=== PATIENT | female | born 1955 | race Caucasian/White ===

== ENCOUNTER 2023-09-11 14:25 | Observation (INO) | payer OTHER, SELFPAY ==
[2023-09-11] VITALS (61 sets, daily range): BP systolic 80–135; BP diastolic 47–74; PULSE 46–84; RESP 14–28; TEMP 36.1–36.4; O2SAT 93–100; BMI 25.0
--- NOTE | 2023-09-11 14:41 | ED_ITS ---
HPI - Abdominal Pain <Jaylene Topete MD - Last Filed: 09/13/23 00:44> General Chief Complaint: Abdominal Pain Stated Complaint: ABD Pain, Vomitting Time Seen by Provider: 09/11/23 14:28 Source: patient Mode of arrival: Wheelchair History of Present Illness HPI narrative: 67-year-old female presents for sudden onset right lower quadrant abdominal pain and vomiting. Patient states history of kidney stones several years ago, and this feels somewhat similar. Other history is limited as patient was actively vomiting into emesis bag and writhing around on the ED stretcher. Related Data Home Medications Medication Instructions Recorded Confirmed estradiol 0.05 mg/24 hr weekly 1 patch transdermal WEEKLY 09/11/23 09/11/23 transdermal patch gabapentin 300 mg capsule 300 mg DAILY 09/11/23 09/11/23 progesterone micronized 200 mg 200 mg PO ONCE PM 09/11/23 09/11/23 capsule Previous Rx's Medication Instructions Recorded hydrocodone 5 mg-acetaminophen 325 1 tab PO Q6H PRN pain #6 tabs 09/12/23 mg tablet ondansetron 4 mg disintegrating 4 mg PO Q4H PRN nausea and 09/12/23 tablet vomiting #10 tabs Allergies Allergy/AdvReac Type Severity Reaction Status Date / Time No Known Drug Allergies Allergy Verified 09/11/23 14:35 Review of Systems <Jaylene Topete MD - Last Filed: 09/13/23 00:44> Review of Systems Narrative: See HPI Patient History <Jaylene Topete MD - Last Filed: 09/13/23 00:44> Social History household members: family Smoking Status: Unknown if ever smoked Smoking Status: Unknown if ever smoked alcohol intake frequency: holidays/special occasions only Substance Use Type: does not use Exam <Jaylene Topete MD - Last Filed: 09/13/23 00:44> Initial Vital Signs Initial Vital Signs: Vital Signs Temperature 97.5 F L 09/11/23 14:26 Pulse Rate 61 09/11/23 14:26 Respiratory Rate 20 09/11/23 14:26 Blood Pressure 135/74 09/11/23 14:26 Pulse Oximetry 99 09/11/23 14:26 Oxygen Delivery Method Room Air 09/11/23 14:26 Const: Awake, alert, tearful, writhing on ED bed Cardiac: regular rate, regular rhythm RESP: unlabored, clear bilaterally, no wheezing GI: Soft, no reproducible tenderness to deep palpation, no rebound or guarding Skin: Warm, Dry, intact, no rashes Neuro: AO x3, CN II-XII grossly intact, moves all extremities <Jaylene Wu DO - Last Filed: 09/12/23 00:54> Initial Vital Signs Initial Vital Signs: Vital Signs Temperature 97.5 F L 09/11/23 14:26 Pulse Rate 61 09/11/23 14:26 Respiratory Rate 20 09/11/23 14:26 Blood Pressure 135/74 09/11/23 14:26 Pulse Oximetry 99 09/11/23 14:26 Oxygen Delivery Method Room Air 09/11/23 14:26 Course <Jaylene Topete MD - Last Filed: 09/13/23 00:44> Orders Ordered: Discontinued Medications Acetaminophen (Acetaminophen 325 Mg Tablet) 650 mg PO Q6H PRN PRN Reason: Fever/Mild Pain (1-3) Last Admin: 09/12/23 07:00 Dose: 650 mg Documented By: YRIS Droperidol (Droperidol 5 Mg/2 Ml Vial) 2.5 mg IV NOW ONE Stop: 09/11/23 14:55 Last Admin: 09/11/23 15:05 Dose: 2.5 mg Documented By: CONSTANCE Droperidol (Droperidol 5 Mg/2 Ml Vial) 2.5 mg IV NOW ONE Stop: 09/11/23 16:33 Last Admin: 09/11/23 16:33 Dose: 2.5 mg Documented By: CONSTANCE Gabapentin (Gabapentin 300 Mg Capsule) 300 mg PO DAILY MATT Last Admin: 09/12/23 09:11 Dose: Not Given Documented By: VELASQUEZ Hydromorphone HCl (Hydromorphone 0.5 Mg Inj) 0.5 mg IV Q2H PRN PRN Reason: Pain, Severe (7-10) Last Admin: 09/12/23 00:27 Dose: 0.5 mg Documented By: YRIS Sodium Chloride (Normal Saline 0.9%) 1,000 mls @ 1,000 mls/hr IV BOLUS ONE Stop: 09/11/23 15:38 Last Infusion: 09/11/23 16:11 Dose: Infused Documented By: Admin: 09/11/23 14:45 Dose: 1,000 mls/hr Documented By: RB Sodium Chloride (Normal Saline 0.9%) 1,000 mls @ 1,000 mls/hr IV BOLUS ONE Stop: 09/11/23 17:30 Last Infusion: 09/11/23 17:38 Dose: Infused Documented By: Admin: 09/11/23 16:33 Dose: 1,000 mls/hr Documented By: RB Sodium Chloride (Normal Saline 0.9%) 1,000 mls @ 1,000 mls/hr IV BOLUS ONE Stop: 09/11/23 17:30 Last Admin: 09/11/23 16:34 Dose: Not Given Documented By: RB Acetaminophen (Ofirmev) 1,000 mg in 100 mls @ 400 mls/hr IV NOW ONE Stop: 09/11/23 19:34 Last Infusion: 09/11/23 19:42 Dose: Infused Documented By: Admin: 09/11/23 19:33 Dose: 400 mls/hr Documented By: AB Ceftriaxone Sodium 1,000 mg/ (Sodium Chloride) 100 mls @ 200 mls/hr IV NOW ONE Stop: 09/11/23 19:22 Last Infusion: 09/11/23 20:13 Dose: Infused Documented By: Admin: 09/11/23 19:43 Dose: 200 mls/hr Documented By: AB Sodium Chloride (Normal Saline 0.9%) 1,000 mls @ 200 mls/hr IV CONT MATT Last Infusion: 09/11/23 23:15 Dose: 0 mls/hr Documented By: Admin: 09/11/23 21:28 Dose: 200 mls/hr Documented By: AB Sodium Chloride (Normal Saline 0.9%) 1,000 mls @ 100 mls/hr IV CONT MATT Last Admin: 09/12/23 06:10 Dose: 100 mls/hr Documented By: Infusion: 09/12/23 06:10 Dose: Infused Documented By: Admin: 09/11/23 23:14 Dose: 100 mls/hr Documented By: YRIS Ketorolac Tromethamine (Ketorolac 30 Mg/Ml Vial) 15 mg IV NOW ONE Stop: 09/11/23 15:14 Last Admin: 09/11/23 15:19 Dose: 15 mg Documented By: KENDRA Ketorolac Tromethamine (Ketorolac 30 Mg/Ml Vial) 30 mg IV NOW ONE Stop: 09/12/23 02:28 Last Admin: 09/12/23 02:46 Dose: 30 mg Documented By: YRIS Lorazepam (Lorazepam 2 Mg/Ml Inj) 2 mg IV NOW ONE Stop: 09/11/23 14:40 Last Admin: 09/11/23 14:52 Dose: Not Given Documented By: KENDRA Lorazepam (Lorazepam 2 Mg/Ml Inj) 1 mg IV NOW ONE Stop: 09/11/23 20:16 Last Admin: 09/11/23 20:33 Dose: 1 mg Documented By: Morphine Sulfate (Morphine 4 Mg/Ml Inj) 4 mg IV NOW ONE Stop: 09/11/23 14:40 Last Admin: 09/11/23 14:45 Dose: 4 mg Documented By: RB Morphine Sulfate (Morphine 2 Mg/Ml Inj) 2 mg IV NOW ONE Stop: 09/11/23 22:34 Last Admin: 09/11/23 22:53 Dose: 2 mg Documented By: YRIS Naloxone HCl (Naloxone 0.4 Mg/Ml Vial) 0.2 mg IV Q2MIN PRN PRN Reason: Opiate Reversal Ondansetron HCl (Ondansetron 4 Mg/2 Ml Inj) 4 mg IV NOW ONE Stop: 09/11/23 19:26 Last Admin: 09/11/23 20:04 Dose: 4 mg Documented By: Ondansetron HCl (Ondansetron 4 Mg/2 Ml Inj) 4 mg IV NOW ONE Stop: 09/11/23 22:34 Last Admin: 09/11/23 22:53 Dose: 4 mg Documented By: YRIS Ondansetron HCl (Ondansetron 4 Mg/2 Ml Inj) 4 mg IV Q8HR PRN PRN Reason: Nausea And Vomiting Vital Signs Vital signs: Vital Signs - 8 hr 09/11/23 16:55 09/11/23 16:55 09/11/23 17:00 Pulse Rate 55 L Respiratory Rate 14 Blood Pressure 105/62 102/59 L Pulse Oximetry 96 Oxygen Delivery Method 09/11/23 17:00 09/11/23 17:05 09/11/23 17:05 Pulse Rate 74 56 L Respiratory Rate 20 14 Blood Pressure 94/56 L Pulse Oximetry 97 95 Oxygen Delivery Method 09/11/23 17:10 09/11/23 17:10 09/11/23 17:22 Pulse Rate 55 L 84 Respiratory Rate 15 Blood Pressure 95/54 L Pulse Oximetry 94 99 Oxygen Delivery Method 09/11/23 17:30 09/11/23 17:36 09/11/23 17:36 Pulse Rate 58 L 55 L Respiratory Rate 16 15 Blood Pressure 100/55 L Pulse Oximetry 97 98 Oxygen Delivery Method 09/11/23 17:40 09/11/23 17:40 09/11/23 17:45 Pulse Rate 52 L 53 L Respiratory Rate 21 21 Blood Pressure 92/53 L Pulse Oximetry 98 98 Oxygen Delivery Method 09/11/23 17:45 09/11/23 17:51 09/11/23 17:51 Pulse Rate 50 L Respiratory Rate 21 Blood Pressure 82/52 L 86/53 L Pulse Oximetry 98 Oxygen Delivery Method 09/11/23 17:55 09/11/23 17:55 09/11/23 18:00 Pulse Rate 51 L 62 Respiratory Rate 20 23 Blood Pressure 83/52 L Pulse Oximetry 97 98 Oxygen Delivery Method 09/11/23 18:00 09/11/23 18:05 09/11/23 18:05 Pulse Rate 52 L Respiratory Rate 21 Blood Pressure 98/56 L 92/53 L Pulse Oximetry 96 Oxygen Delivery Method 09/11/23 18:10 09/11/23 18:10 09/11/23 18:15 Pulse Rate 54 L 61 Respiratory Rate 16 17 Blood Pressure 89/52 L Pulse Oximetry 94 95 Oxygen Delivery Method 09/11/23 18:15 09/11/23 18:20 09/11/23 18:20 Pulse Rate 54 L Respiratory Rate 21 Blood Pressure 87/51 L 101/56 L Pulse Oximetry 98 Oxygen Delivery Method Room Air 09/11/23 18:25 09/11/23 18:25 09/11/23 18:30 Pulse Rate 56 L 67 Respiratory Rate 17 20 Blood Pressure 87/53 L Pulse Oximetry 98 96 Oxygen Delivery Method 09/11/23 18:30 09/11/23 18:35 09/11/23 18:35 Pulse Rate 57 L Respiratory Rate 18 Blood Pressure 90/52 L 88/50 L Pulse Oximetry 93 Oxygen Delivery Method 09/11/23 18:40 09/11/23 18:40 09/11/23 18:45 Pulse Rate 56 L 62 Respiratory Rate 15 18 Blood Pressure 93/50 L Pulse Oximetry 93 95 Oxygen Delivery Method 09/11/23 18:45 09/11/23 18:50 09/11/23 18:50 Pulse Rate 69 Respiratory Rate 23 Blood Pressure 100/54 L 91/53 L Pulse Oximetry 97 Oxygen Delivery Method 09/11/23 18:55 09/11/23 18:55 09/11/23 19:00 Pulse Rate 61 73 Respiratory Rate 14 22 Blood Pressure 93/53 L Pulse Oximetry 96 97 Oxygen Delivery Method Room Air 09/11/23 19:00 09/11/23 19:05 09/11/23 19:05 Pulse Rate 52 L Respiratory Rate 22 Blood Pressure 90/52 L 88/52 L Pulse Oximetry 95 Oxygen Delivery Method 09/11/23 19:10 09/11/23 19:15 09/11/23 19:30 Pulse Rate 53 L 52 L 65 Respiratory Rate 19 17 18 Blood Pressure Pulse Oximetry 94 95 96 Oxygen Delivery Method 09/11/23 19:30 09/11/23 20:00 09/11/23 20:00 Pulse Rate 51 L Respiratory Rate 24 Blood Pressure 95/55 L 91/52 L Pulse Oximetry 99 Oxygen Delivery Method 09/11/23 20:30 09/11/23 20:30 09/11/23 21:00 Pulse Rate 58 L Respiratory Rate 27 H Blood Pressure 100/53 L 97/52 L Pulse Oximetry 98 Oxygen Delivery Method 09/11/23 21:00 09/11/23 21:30 09/11/23 21:30 Pulse Rate 59 L 62 Respiratory Rate 28 H 26 H Blood Pressure 103/59 L Pulse Oximetry 98 97 Oxygen Delivery Method <Jaylene Wu, - Last Filed: 09/12/23 00:54> Orders Ordered: Discontinued Medications Acetaminophen (Acetaminophen 325 Mg Tablet) 650 mg PO Q6H PRN PRN Reason: Fever/Mild Pain (1-3) Last Admin: 09/12/23 07:00 Dose: 650 mg Documented By: CM Droperidol (Droperidol 5 Mg/2 Ml Vial) 2.5 mg IV NOW ONE Stop: 09/11/23 14:55 Last Admin: 09/11/23 15:05 Dose: 2.5 mg Documented By: RB Droperidol (Droperidol 5 Mg/2 Ml Vial) 2.5 mg IV NOW ONE Stop: 09/11/23 16:33 Last Admin: 09/11/23 16:33 Dose: 2.5 mg Documented By: RB Gabapentin (Gabapentin 300 Mg Capsule) 300 mg PO DAILY MATT Last Admin: 09/12/23 09:11 Dose: Not Given Documented By: KMD Hydromorphone HCl (Hydromorphone 0.5 Mg Inj) 0.5 mg IV Q2H PRN PRN Reason: Pain, Severe (7-10) Last Admin: 09/12/23 00:27 Dose: 0.5 mg Documented By: YRIS Sodium Chloride (Normal Saline 0.9%) 1,000 mls @ 1,000 mls/hr IV BOLUS ONE Stop: 09/11/23 15:38 Last Infusion: 09/11/23 16:11 Dose: Infused Documented By: Admin: 09/11/23 14:45 Dose: 1,000 mls/hr Documented By: RB Sodium Chloride (Normal Saline 0.9%) 1,000 mls @ 1,000 mls/hr IV BOLUS ONE Stop: 09/11/23 17:30 Last Infusion: 09/11/23 17:38 Dose: Infused Documented By: Admin: 09/11/23 16:33 Dose: 1,000 mls/hr Documented By: RB Sodium Chloride (Normal Saline 0.9%) 1,000 mls @ 1,000 mls/hr IV BOLUS ONE Stop: 09/11/23 17:30 Last Admin: 09/11/23 16:34 Dose: Not Given Documented By: RB Acetaminophen (Ofirmev) 1,000 mg in 100 mls @ 400 mls/hr IV NOW ONE Stop: 09/11/23 19:34 Last Infusion: 09/11/23 19:42 Dose: Infused Documented By: Admin: 09/11/23 19:33 Dose: 400 mls/hr Documented By: AB Ceftriaxone Sodium 1,000 mg/ (Sodium Chloride) 100 mls @ 200 mls/hr IV NOW ONE Stop: 09/11/23 19:22 Last Infusion: 09/11/23 20:13 Dose: Infused Documented By: Admin: 09/11/23 19:43 Dose: 200 mls/hr Documented By: AB Sodium Chloride (Normal Saline 0.9%) 1,000 mls @ 200 mls/hr IV CONT MATT Last Infusion: 09/11/23 23:15 Dose: 0 mls/hr Documented By: Admin: 09/11/23 21:28 Dose: 200 mls/hr Documented By: Sodium Chloride (Normal Saline 0.9%) 1,000 mls @ 100 mls/hr IV CONT MATT Last Admin: 09/12/23 06:10 Dose: 100 mls/hr Documented By: Infusion: 09/12/23 06:10 Dose: Infused Documented By: Admin: 09/11/23 23:14 Dose: 100 mls/hr Documented By: YRIS Ketorolac Tromethamine (Ketorolac 30 Mg/Ml Vial) 15 mg IV NOW ONE Stop: 09/11/23 15:14 Last Admin: 09/11/23 15:19 Dose: 15 mg Documented By: KENDRA Ketorolac Tromethamine (Ketorolac 30 Mg/Ml Vial) 30 mg IV NOW ONE Stop: 09/12/23 02:28 Last Admin: 09/12/23 02:46 Dose: 30 mg Documented By: YRIS Lorazepam (Lorazepam 2 Mg/Ml Inj) 2 mg IV NOW ONE Stop: 09/11/23 14:40 Last Admin: 09/11/23 14:52 Dose: Not Given Documented By: KENDRA Lorazepam (Lorazepam 2 Mg/Ml Inj) 1 mg IV NOW ONE Stop: 09/11/23 20:16 Last Admin: 09/11/23 20:33 Dose: 1 mg Documented By: Morphine Sulfate (Morphine 4 Mg/Ml Inj) 4 mg IV NOW ONE Stop: 09/11/23 14:40 Last Admin: 09/11/23 14:45 Dose: 4 mg Documented By: RB Morphine Sulfate (Morphine 2 Mg/Ml Inj) 2 mg IV NOW ONE Stop: 09/11/23 22:34 Last Admin: 09/11/23 22:53 Dose: 2 mg Documented By: YRIS Naloxone HCl (Naloxone 0.4 Mg/Ml Vial) 0.2 mg IV Q2MIN PRN PRN Reason: Opiate Reversal Ondansetron HCl (Ondansetron 4 Mg/2 Ml Inj) 4 mg IV NOW ONE Stop: 09/11/23 19:26 Last Admin: 09/11/23 20:04 Dose: 4 mg Documented By: Ondansetron HCl (Ondansetron 4 Mg/2 Ml Inj) 4 mg IV NOW ONE Stop: 09/11/23 22:34 Last Admin: 09/11/23 22:53 Dose: 4 mg Documented By: YRIS Ondansetron HCl (Ondansetron 4 Mg/2 Ml Inj) 4 mg IV Q8HR PRN PRN Reason: Nausea And Vomiting Vital Signs Vital signs: Vital Signs - 8 hr 09/11/23 16:55 09/11/23 16:55 09/11/23 17:00 Pulse Rate 55 L Respiratory Rate 14 Blood Pressure 105/62 102/59 L Pulse Oximetry 96 Oxygen Delivery Method 09/11/23 17:00 09/11/23 17:05 09/11/23 17:05 Pulse Rate 74 56 L Respiratory Rate 20 14 Blood Pressure 94/56 L Pulse Oximetry 97 95 Oxygen Delivery Method 09/11/23 17:10 09/11/23 17:10 09/11/23 17:22 Pulse Rate 55 L 84 Respiratory Rate 15 Blood Pressure 95/54 L Pulse Oximetry 94 99 Oxygen Delivery Method 09/11/23 17:30 09/11/23 17:36 09/11/23 17:36 Pulse Rate 58 L 55 L Respiratory Rate 16 15 Blood Pressure 100/55 L Pulse Oximetry 97 98 Oxygen Delivery Method 09/11/23 17:40 09/11/23 17:40 09/11/23 17:45 Pulse Rate 52 L 53 L Respiratory Rate 21 21 Blood Pressure 92/53 L Pulse Oximetry 98 98 Oxygen Delivery Method 09/11/23 17:45 09/11/23 17:51 09/11/23 17:51 Pulse Rate 50 L Respiratory Rate 21 Blood Pressure 82/52 L 86/53 L Pulse Oximetry 98 Oxygen Delivery Method 09/11/23 17:55 09/11/23 17:55 09/11/23 18:00 Pulse Rate 51 L 62 Respiratory Rate 20 23 Blood Pressure 83/52 L Pulse Oximetry 97 98 Oxygen Delivery Method 09/11/23 18:00 09/11/23 18:05 09/11/23 18:05 Pulse Rate 52 L Respiratory Rate 21 Blood Pressure 98/56 L 92/53 L Pulse Oximetry 96 Oxygen Delivery Method 09/11/23 18:10 09/11/23 18:10 09/11/23 18:15 Pulse Rate 54 L 61 Respiratory Rate 16 17 Blood Pressure 89/52 L Pulse Oximetry 94 95 Oxygen Delivery Method 09/11/23 18:15 09/11/23 18:20 09/11/23 18:20 Pulse Rate 54 L Respiratory Rate 21 Blood Pressure 87/51 L 101/56 L Pulse Oximetry 98 Oxygen Delivery Method Room Air 09/11/23 18:25 09/11/23 18:25 09/11/23 18:30 Pulse Rate 56 L 67 Respiratory Rate 17 20 Blood Pressure 87/53 L Pulse Oximetry 98 96 Oxygen Delivery Method 09/11/23 18:30 09/11/23 18:35 09/11/23 18:35 Pulse Rate 57 L Respiratory Rate 18 Blood Pressure 90/52 L 88/50 L Pulse Oximetry 93 Oxygen Delivery Method 09/11/23 18:40 09/11/23 18:40 09/11/23 18:45 Pulse Rate 56 L 62 Respiratory Rate 15 18 Blood Pressure 93/50 L Pulse Oximetry 93 95 Oxygen Delivery Method 09/11/23 18:45 09/11/23 18:50 09/11/23 18:50 Pulse Rate 69 Respiratory Rate 23 Blood Pressure 100/54 L 91/53 L Pulse Oximetry 97 Oxygen Delivery Method 09/11/23 18:55 09/11/23 18:55 09/11/23 19:00 Pulse Rate 61 73 Respiratory Rate 14 22 Blood Pressure 93/53 L Pulse Oximetry 96 97 Oxygen Delivery Method Room Air 09/11/23 19:00 09/11/23 19:05 09/11/23 19:05 Pulse Rate 52 L Respiratory Rate 22 Blood Pressure 90/52 L 88/52 L Pulse Oximetry 95 Oxygen Delivery Method 09/11/23 19:10 09/11/23 19:15 09/11/23 19:30 Pulse Rate 53 L 52 L 65 Respiratory Rate 19 17 18 Blood Pressure Pulse Oximetry 94 95 96 Oxygen Delivery Method 09/11/23 19:30 09/11/23 20:00 09/11/23 20:00 Pulse Rate 51 L Respiratory Rate 24 Blood Pressure 95/55 L 91/52 L Pulse Oximetry 99 Oxygen Delivery Method 09/11/23 20:30 09/11/23 20:30 09/11/23 21:00 Pulse Rate 58 L Respiratory Rate 27 H Blood Pressure 100/53 L 97/52 L Pulse Oximetry 98 Oxygen Delivery Method 09/11/23 21:00 09/11/23 21:30 09/11/23 21:30 Pulse Rate 59 L 62 Respiratory Rate 28 H 26 H Blood Pressure 103/59 L Pulse Oximetry 98 97 Oxygen Delivery Method MDM - Abdominal Pain <Jaylene Topete MD - Last Filed: 09/13/23 00:44> Differential Diagnosis Differential diagnosis: Likely abdominal pain, acute appendicitis and calculus of kidney Lab Data 09/12/23 06:00 09/12/23 06:00 Labs: Lab Results 09/11/23 09/11/23 09/11/23 Range/Units 14:30 14:37 18:37 WBC 8.3 (4.5-11.0) X10^3/uL RBC 4.27 (4.0-5.2) X10^6/uL Hgb 13.6 (12.0-16.0) g/dL Hct 40.1 (36-46) % MCV 93.9 (80-100) fL MCH 31.7 (26-34) PG MCHC 33.8 (30-36) % RDW 14.5 (11.6-14.8) % Plt Count 421 H (150-400) X10^3/uL Neut % (Auto) 47.5 L (50-75) % Lymph % (Auto) 41.8 H (25-40) % [place] % (Auto) 9.8 (3-14) % Eos % (Auto) 0.6 L (2-4) % Baso % (Auto) 0.3 (0-2) % Neut # (Auto) 3900 (9234-6201) /uL Lymph # (Auto) 3500 (6822-2930) /uL [place] # (Auto) 800 (0-900) /uL Eos # (Auto) 100 (0-450) /uL Baso # (Auto) 0 (0-100) /uL Sodium 135 L (137-145) mmol/L Potassium 4.0 (3.4-5.1) mmol/L Chloride 107 (98-107) mmol/L Carbon Dioxide 23 (22-32) mmol/L BUN 27 H (7-17) mg/dL Creatinine 0.85 (0.52-1.04) mg/dL Estimated GFR > 60 (>60) mL/min BUN/Creatinine Ratio 31.8 H (6-22) Glucose 132 H (80-110) mg/dL Lactate 1.8 (0.7-2.1) mmol/L Calcium 8.6 (8.4-10.2) mg/dL Total Bilirubin 0.7 (0.2-1.3) mg/dL AST 26 (14-36) IU/L ALT 16 (<35) IU/L Alkaline Phosphatase 46 (38-126) U/L Total Protein 7.1 (6.3-8.2) g/dL Albumin 4.2 (3.5-5.0) g/dL Globulin 2.9 (1.7-4.1) g/dL Albumin/Globulin Ratio 1.4 (1.0-2.8) Lipase 108 (23-300) U/L Procalcitonin (<0.5) ng/mL Urine Color [place] Urine Appearance Clear Urine pH TNP Ur Specific [place] TNP Urine Protein TNP Urine Glucose (UA) TNP Urine Ketones TNP Urine Occult Blood TNP Urine Nitrate TNP Urine Bilirubin TNP Ur Bilirubin Confirm Negative (Negative) Urine Urobilinogen TNP Ur Leukocyte Esterase TNP Urine RBC 0-1/hpf (0-5/HPF) Urine WBC 0-1/hpf (0-5/HPF) Ur Squamous Epith Cells 10-30 /hpf H (0-5/HPF) Urine Bacteria Moderate (10-30) H (None) Urine Mucus 1+ H (Negative) Urine Yeast 10-30/hpf H (None) Ur Culture Indicated? Specimen cultured Vol Urine Centrifuged 10ml (spun) U Opiates 300ng/mL cut Positive H (Negative) Ur Oxycodone Screen Negative (Negative) Urine Methadone Screen Negative (Negative) Ur Barbiturates Screen Negative (Negative) U Tricyclic Antidepress Negative (Negative) Ur Phencyclidine Scrn Negative (Negative) Ur Amphetamines Screen Negative (Negative) U Methamphetamines Scrn Negative (Negative) Ur MDMA Scrn (Ecstasy) Negative (Negative) U Benzodiazepines Scrn Negative (Negative) Urine Cocaine Screen Negative (Negative) U Marijuana (THC) Screen Negative (Negative) Urine Specific [place] (Normal) Ur Creatinine (Normal) 09/11/23 09/11/23 Range/Units 18:37 20:23 WBC (4.5-11.0) X10^3/uL RBC (4.0-5.2) X10^6/uL Hgb (12.0-16.0) g/dL Hct (36-46) % MCV (80-100) fL MCH (26-34) PG MCHC (30-36) % RDW (11.6-14.8) % Plt Count (150-400) X10^3/uL Neut % (Auto) (50-75) % Lymph % (Auto) (25-40) % [place] % (Auto) (3-14) % Eos % (Auto) (2-4) % Baso % (Auto) (0-2) % Neut # (Auto) (7011-0589) /uL Lymph # (Auto) (7617-9862) /uL [place] # (Auto) (0-900) /uL Eos # (Auto) (0-450) /uL Baso # (Auto) (0-100) /uL Sodium (137-145) mmol/L Potassium (3.4-5.1) mmol/L Chloride (98-107) mmol/L Carbon Dioxide (22-32) mmol/L BUN (7-17) mg/dL Creatinine (0.52-1.04) mg/dL Estimated GFR (>60) mL/min BUN/Creatinine Ratio (6-22) Glucose (80-110) mg/dL Lactate 1.5 (0.7-2.1) mmol/L Calcium (8.4-10.2) mg/dL Total Bilirubin (0.2-1.3) mg/dL AST (14-36) IU/L ALT (<35) IU/L Alkaline Phosphatase (38-126) U/L Total Protein (6.3-8.2) g/dL Albumin (3.5-5.0) g/dL Globulin (1.7-4.1) g/dL Albumin/Globulin Ratio (1.0-2.8) Lipase (23-300) U/L Procalcitonin 0.030 (<0.5) ng/mL Urine Color Urine Appearance Urine pH Normal Ur Specific [place] Urine Protein Urine Glucose (UA) Urine Ketones Urine Occult Blood Urine Nitrate Urine Bilirubin Ur Bilirubin Confirm (Negative) Urine Urobilinogen Ur Leukocyte Esterase Urine RBC (0-5/HPF) Urine WBC (0-5/HPF) Ur Squamous Epith Cells (0-5/HPF) Urine Bacteria (None) Urine Mucus (Negative) Urine Yeast (None) Ur Culture Indicated? Vol Urine Centrifuged U Opiates 300ng/mL cut (Negative) Ur Oxycodone Screen (Negative) Urine Methadone Screen (Negative) Ur Barbiturates Screen (Negative) U Tricyclic Antidepress (Negative) Ur Phencyclidine Scrn (Negative) Ur Amphetamines Screen (Negative) U Methamphetamines Scrn (Negative) Ur MDMA Scrn (Ecstasy) (Negative) U Benzodiazepines Scrn (Negative) Urine Cocaine Screen (Negative) U Marijuana (THC) Screen (Negative) Urine Specific [place] Normal (Normal) Ur Creatinine Normal (Normal) Imaging Data CT scan - abdomen/pelvis: Radiologist's Impression: PROCEDURE: CT KIDNEY URETER BLADDER (KUB) INDICATIONS: RLQ PAIN, HX KIDNEY STONES TECHNIQUE: Axial sections were acquired from the lung bases to the pubic symphysis. Coronal and sagittal reformats were performed. For radiation dose reduction, the following was used: automated exposure control, adjustment of mA and/or kV according to patient size. COMPARISON: None. FINDINGS: Image quality: Diagnostic. Lower Chest: No significant findings. URINARY: Right Kidney: No stones or hydronephrosis. Right Ureter: No hydroureter. Left Kidney: No stones or hydronephrosis. Left Ureter: No hydroureter. Bladder: Normal wall thickness. No stones. ABDOMEN: Liver: No contour-deforming solid mass. Gallbladder: No radiopaque gallstones or wall thickening. Biliary ducts: No biliary dilation. Pancreas: No ductal dilation. Spleen: Size is within normal limits. Adrenal Glands: No adrenal nodules. Stomach and Bowel: Normal colonic caliber, without significant wall thickening. Normal caliber appendix in the right lower quadrant. Peritoneum: No abnormal intraperitoneal fluid. No free air. Ventral Wall: No hernia. Abdominal Nodes: No enlarged retroperitoneal or mesenteric lymph nodes. Vessels: Aorta and inferior vena cava are normal in size. PELVIS: Pelvic Organs: Unremarkable. Pelvic Nodes: Unremarkable. Miscellaneous: No inguinal hernias are seen. Bones: Unremarkable. Mild degenerative changes of the visualized spine without acute vertebral body compression fracture. IMPRESSION: No obstructing stones or hydronephrosis. Normal caliber appendix in right lower quadrant. No acute process in the abdomen or pelvis identified to explain patient's symptoms. Approved by: Temi Swartz M.D.,Ph.D. on 09/11/2023 at 14:38 MDM Narrative Medical decision making narrative: Patient presenting for sudden onset severe right lower quadrant abdominal pain. Patient is crying and writhing on the ED stretcher, actively vomiting into emesis bag. Abdomen is soft, no focal reproducible tenderness to palpation, however patient states that her pain is concentrated in her right lower quadrant. Laboratory work, antiemetics, pain medications ordered. CT ordered for assessment. WBC count 8.3, hemoglobin 13.6, platelet count 421, sodium 135, potassium 4.0, creatinine 0.85, T bili 0.7, AST 26, ALT 16, alk phos 46, lipase 108. CT imaging of the abdomen and pelvis shows no acute intra-abdominal findings to explain why patient is having such severe pain. Pain controlled with morphine and Toradol, however she was still having dry heaves and poorly tolerating p.o. water. Additional antiemetics ordered and right upper quadrant ultrasound ordered. Pending read of US. Patient stating pain starting to return. Care of patient signed to Dr. Wu at 1800 09/11/2023: 67 year female signed out to myself by Dr. Topete. Patient's labs were reviewed platelets are elevated at 421 lymphocytes are 41 %, neutrophils or somewhat low at 47. Chemistry shows sodium 135 BUN 27, otherwise appropriate electrolytes glucose of 132 LFTs are negative lactate 1.8, lipase is 108. Patient had CT abdomen pelvis with no acute change, normal appendix, no acute process appreciated with some mild degenerative changes in the spine. Abdominal ultrasound was also obtained shows no cholelithiasis or acute evidence of cholecystitis. Patient was able to give a urine Postvoid residual was 44. Patient has received 2 L of fluid, morphine, droperidol x2, ketorolac. She states she is feeling improved. She did attempt a p.o. challenge about an hour prior to my evaluation and states she felt really nauseated. Did note her blood pressure has been low she states that is fairly normal she runs about 90 to 100 systolic typically. Patient notes this does feel somewhat like she had a kidney stone in the past, she also noted she would symptoms consistent with some UTI before all of her symptoms started yesterday. Denies any fevers, no chest pain or shortness of breath, stated with pain right lower quadrant does not radiate to her flank or elsewhere. She states no fevers. She states of assist looked like water and liquid. She states she did have a bowel movement yesterday but denies any diarrhea or other constipation symptoms. No vaginal bleeding or discharge. Physical exam patient is nontender, has clear lungs with normal respirations. No diaphoresis. She is overall well-appearing nontoxic appearing. Patient's pain did return gave her IV Tylenol, she would some Zofran, also given a dose of Rocephin urine shows possible infection had azo so unable to check for nitrates or leuks, patient has 10-30 squamous, 0-1 white, 0-1 RBCs moderate bacteria, 10-30 yeast. Patient has failed oral challenges twice despite antiemetics. Pain is overall improved. Possible UTI but patient does have a lot of squamous epithelial with intractable vomiting with no other clear source. Patient had blood cultures obtained, procalcitonin which is negative and lactate wishes repeated which is negative as well. Patient's blood pressure has been running about 90 systolic but she states that is normal for her. Spoke with hospitalist Dr. Noriega, accepts for observation. He does ask that we add on drug screen. <Jaylene Wu, DO - Last Filed: 09/12/23 00:54> Lab Data Labs: Lab Results 09/11/23 09/11/23 09/11/23 Range/Units 14:30 14:37 18:37 WBC 8.3 (4.5-11.0) X10^3/uL RBC 4.27 (4.0-5.2) X10^6/uL Hgb 13.6 (12.0-16.0) g/dL Hct 40.1 (36-46) % MCV 93.9 (80-100) fL MCH 31.7 (26-34) PG MCHC 33.8 (30-36) % RDW 14.5 (11.6-14.8) % Plt Count 421 H (150-400) X10^3/uL Neut % (Auto) 47.5 L (50-75) % Lymph % (Auto) 41.8 H (25-40) % [place] % (Auto) 9.8 (3-14) % Eos % (Auto) 0.6 L (2-4) % Baso % (Auto) 0.3 (0-2) % Neut # (Auto) 3900 (8576-8116) /uL Lymph # (Auto) 3500 (7235-8453) /uL [place] # (Auto) 800 (0-900) /uL Eos # (Auto) 100 (0-450) /uL Baso # (Auto) 0 (0-100) /uL Sodium 135 L (137-145) mmol/L Potassium 4.0 (3.4-5.1) mmol/L Chloride 107 (98-107) mmol/L Carbon Dioxide 23 (22-32) mmol/L BUN 27 H (7-17) mg/dL Creatinine 0.85 (0.52-1.04) mg/dL Estimated GFR > 60 (>60) mL/min BUN/Creatinine Ratio 31.8 H (6-22) Glucose 132 H (80-110) mg/dL Lactate 1.8 (0.7-2.1) mmol/L Calcium 8.6 (8.4-10.2) mg/dL Total Bilirubin 0.7 (0.2-1.3) mg/dL AST 26 (14-36) IU/L ALT 16 (<35) IU/L Alkaline Phosphatase 46 (38-126) U/L Total Protein 7.1 (6.3-8.2) g/dL Albumin 4.2 (3.5-5.0) g/dL Globulin 2.9 (1.7-4.1) g/dL Albumin/Globulin Ratio 1.4 (1.0-2.8) Lipase 108 (23-300) U/L Procalcitonin (<0.5) ng/mL Urine Color [place] Urine Appearance Clear Urine pH TNP Ur Specific [place] TNP Urine Protein TNP Urine Glucose (UA) TNP Urine Ketones TNP Urine Occult Blood TNP Urine Nitrate TNP Urine Bilirubin TNP Ur Bilirubin Confirm Negative (Negative) Urine Urobilinogen TNP Ur Leukocyte Esterase TNP Urine RBC 0-1/hpf (0-5/HPF) Urine WBC 0-1/hpf (0-5/HPF) Ur Squamous Epith Cells 10-30 /hpf H (0-5/HPF) Urine Bacteria Moderate (10-30) H (None) Urine Mucus 1+ H (Negative) Urine Yeast 10-30/hpf H (None) Ur Culture Indicated? Specimen cultured Vol Urine Centrifuged 10ml (spun) U Opiates 300ng/mL cut Positive H (Negative) Ur Oxycodone Screen Negative (Negative) Urine Methadone Screen Negative (Negative) Ur Barbiturates Screen Negative (Negative) U Tricyclic Antidepress Negative (Negative) Ur Phencyclidine Scrn Negative (Negative) Ur Amphetamines Screen Negative (Negative) U Methamphetamines Scrn Negative (Negative) Ur MDMA Scrn (Ecstasy) Negative (Negative) U Benzodiazepines Scrn Negative (Negative) Urine Cocaine Screen Negative (Negative) U Marijuana (THC) Screen Negative (Negative) Urine Specific [place] (Normal) Ur Creatinine (Normal) 09/11/23 09/11/23 Range/Units 18:37 20:23 WBC (4.5-11.0) X10^3/uL RBC (4.0-5.2) X10^6/uL Hgb (12.0-16.0) g/dL Hct (36-46) % MCV (80-100) fL MCH (26-34) PG MCHC (30-36) % RDW (11.6-14.8) % Plt Count (150-400) X10^3/uL Neut % (Auto) (50-75) % Lymph % (Auto) (25-40) % [place] % (Auto) (3-14) % Eos % (Auto) (2-4) % Baso % (Auto) (0-2) % Neut # (Auto) (0484-2257) /uL Lymph # (Auto) (5701-0962) /uL [place] # (Auto) (0-900) /uL Eos # (Auto) (0-450) /uL Baso # (Auto) (0-100) /uL Sodium (137-145) mmol/L Potassium (3.4-5.1) mmol/L Chloride (98-107) mmol/L Carbon Dioxide (22-32) mmol/L BUN (7-17) mg/dL Creatinine (0.52-1.04) mg/dL Estimated GFR (>60) mL/min BUN/Creatinine Ratio (6-22) Glucose (80-110) mg/dL Lactate 1.5 (0.7-2.1) mmol/L Calcium (8.4-10.2) mg/dL Total Bilirubin (0.2-1.3) mg/dL AST (14-36) IU/L ALT (<35) IU/L Alkaline Phosphatase (38-126) U/L Total Protein (6.3-8.2) g/dL Albumin (3.5-5.0) g/dL Globulin (1.7-4.1) g/dL Albumin/Globulin Ratio (1.0-2.8) Lipase (23-300) U/L Procalcitonin 0.030 (<0.5) ng/mL Urine Color Urine Appearance Urine pH Normal Ur Specific [place] Urine Protein Urine Glucose (UA) Urine Ketones Urine Occult Blood Urine Nitrate Urine Bilirubin Ur Bilirubin Confirm (Negative) Urine Urobilinogen Ur Leukocyte Esterase Urine RBC (0-5/HPF) Urine WBC (0-5/HPF) Ur Squamous Epith Cells (0-5/HPF) Urine Bacteria (None) Urine Mucus (Negative) Urine Yeast (None) Ur Culture Indicated? Vol Urine Centrifuged U Opiates 300ng/mL cut (Negative) Ur Oxycodone Screen (Negative) Urine Methadone Screen (Negative) Ur Barbiturates Screen (Negative) U Tricyclic Antidepress (Negative) Ur Phencyclidine Scrn (Negative) Ur Amphetamines Screen (Negative) U Methamphetamines Scrn (Negative) Ur MDMA Scrn (Ecstasy) (Negative) U Benzodiazepines Scrn (Negative) Urine Cocaine Screen (Negative) U Marijuana (THC) Screen (Negative) Urine Specific [place] Normal (Normal) Ur Creatinine Normal (Normal) ECG Data Attestation: I personally reviewed and interpreted this ECG as follows: Interpretation: Sinus rhythm rate of 62 VA 158 QRS 82 QTC [address] No acute ST elevation or depression. [facility] Narrative Medical decision making narrative: Patient presenting for sudden onset severe right lower quadrant abdominal pain. Patient is crying and writhing on the ED stretcher, actively vomiting into emesis bag. Abdomen is soft, no focal reproducible tenderness to palpation, however patient states that her pain is concentrated in her right lower quadrant. Laboratory work, antiemetics, pain medications ordered. CT ordered for assessment. WBC count 8.3, hemoglobin 13.6, platelet count 421, sodium 135, potassium 4.0, creatinine 0.85, T bili 0.7, AST 26, ALT 16, alk phos 46, lipase 108. CT imaging of the abdomen and pelvis shows no acute intra-abdominal findings to explain why patient is having such severe pain. Pain controlled with morphine and Toradol, however she was still having dry heaves and poorly tolerating p.o. water. Additional antiemetics ordered and right upper quadrant ultrasound ordered. 09/11/2023: 67 year female signed out to myself by Dr. Topete. Patient's labs were reviewed platelets are elevated at 421 lymphocytes are 41 %, neutrophils or somewhat low at 47. Chemistry shows sodium 135 BUN 27, otherwise appropriate electrolytes glucose of 132 LFTs are negative lactate 1.8, lipase is 108. Patient had CT abdomen pelvis with no acute change, normal appendix, no acute process appreciated with some mild degenerative changes in the spine. Abdominal ultrasound was also obtained shows no cholelithiasis or acute evidence of cholecystitis. Patient was able to give a urine Postvoid residual was 44. Patient has received 2 L of fluid, morphine, droperidol x2, ketorolac. She states she is feeling improved. She did attempt a p.o. challenge about an hour prior to my evaluation and states she felt really nauseated. Did note her blood pressure has been low she states that is fairly normal she runs about 90 to 100 systolic typically. Patient notes this does feel somewhat like she had a kidney stone in the past, she also noted she would symptoms consistent with some UTI before all of her symptoms started yesterday. Denies any fevers, no chest pain or shortness of breath, stated with pain right lower quadrant does not radiate to her flank or elsewhere. She states no fevers. She states of assist looked like water and liquid. She states she did have a bowel movement yesterday but denies any diarrhea or other constipation symptoms. No vaginal bleeding or discharge. Physical exam patient is nontender, has clear lungs with normal respirations. No diaphoresis. She is overall well-appearing nontoxic appearing. Patient's pain did return gave her IV Tylenol, she would some Zofran, also given a dose of Rocephin urine shows possible infection had azo so unable to check for nitrates or leuks, patient has 10-30 squamous, 0-1 white, 0-1 RBCs moderate bacteria, 10-30 yeast. Patient has failed oral challenges twice despite antiemetics. Pain is overall improved. Possible UTI but patient does have a lot of squamous epithelial with intractable vomiting with no other clear source. Patient had blood cultures obtained, procalcitonin which is negative and lactate wishes repeated which is negative as well. Patient's blood pressure has been running about 90 systolic but she states that is normal for her. Spoke with hospitalist Dr. Noriega, accepts for observation. He does ask that we add on drug screen. Discharge Plan Departure Patient Disposition: Admitted as Observation Clinical Impression: Acute UTI, Abdominal pain, Vomiting Admit Date/Time: 09/11/23 21:53 Admit Provider: Juan Manuel Noriega
[2023-09-11] MEDS: MORPHINE 4 MG/ML INJ IV (14:45)
[2023-09-11] MEDS: SODIUM CHLORIDE 0.9% 1,000 ML 1000 ML IV ×2 (14:45→16:33)
[2023-09-11 14:47] LABS: Add Manual Diff / Slide Review NO; Basophils Absolute Auto 0 /uL (0-100); Basophils Percent Auto 0.3 % (0-2); Eosinophils Absolute Auto 100 /uL (0-450); Eosinophils Percent Auto 0.6 % (2-4); Hematocrit 40.1 % (36-46); Hemoglobin 13.6 g/dL (12.0-16.0); Lymphocytes Absolute Auto 3500 /uL (1100-4500); Lymphocytes Percent Auto 41.8 % (25-40); Mean Corpuscular HGB Conc 33.8 % (30-36); Mean Corpuscular Hemoglobin 31.7 PG (26-34); Mean Corpuscular Volume 93.9 fL (80-100); Monocytes Absolute Auto 800 /uL (0-900); Monocytes Percent Auto 9.8 % (3-14); Neutrophils Absolute Auto 3900 /uL (1500-7000); Neutrophils Percent Auto 47.5 % (50-75); Platelet Count 421 X10^3/uL (150-400); Red Blood Cell Count 4.27 X10^6/uL (4.0-5.2); Red Cell Distribution Width 14.5 % (11.6-14.8); White Blood Cell Count 8.3 X10^3/uL (4.5-11.0)
[2023-09-11 14:55] LABS: Lactate (Lactic Acid) 1.8 mmol/L (0.7-2.1)
[2023-09-11 14:56] LABS: Alanine Aminotransferase 16 IU/L (<35); Albumin 4.2 g/dL (3.5-5.0); Albumin Globulin Ratio 1.4 (1.0-2.8); Alkaline Phosphatase 46 U/L (38-126); Aspartate Aminotransferase 26 IU/L (14-36); BUN Creatinine Ratio 31.8 (6-22); Bilirubin Total 0.7 mg/dL (0.2-1.3); Blood Urea Nitrogen 27 mg/dL (7-17); Calcium 8.6 mg/dL (8.4-10.2); Carbon Dioxide 23 mmol/L (22-32); Chloride 107 mmol/L (98-107); Estimated Glomerular Filt Rate > 60 mL/min (>60); Globulin 2.9 g/dL (1.7-4.1); Glucose 132 mg/dL (80-110); HEMOLYSIS < 15 (0-50); Sodium 135 mmol/L (137-145); Total Protein 7.1 g/dL (6.3-8.2)
[2023-09-11] MEDS: DROPERIDOL 5 MG/2 ML VIAL 2.5 MG IV ×2 (15:05→16:33)
[2023-09-11] MEDS: KETOROLAC 30 MG/ML VIAL 15 MG IV (15:19)
--- NOTE | 2023-09-11 15:23 | PC.NURSE ---
Patient low blood pressure noted and patient was placed in trendelenburg position. Provider notified and next blood pressure elevated.
--- NOTE | 2023-09-11 16:26 | DI.US.S_ITS ---
PROCEDURE: US ABDOMEN LIMITED INDICATIONS: R SIDED ABD PAIN, INTRACTABLE N/V TECHNIQUE: Real-time scanning was performed of the abdominal and retroperitoneal organs, with image documentation. COMPARISON: None. FINDINGS: Liver: Liver is normal in size and homogeneous in echotexture. Gallbladder: No gallstones identified. Normal gallbladder wall thickness. No pericholecystic fluid. Negative sonographic Herrera sign. Biliary ducts: Intrahepatic bile ducts are non-dilated. Extrahepatic bile duct caliber measures 2.0 mm. Normal is 6-7 mm or less in diameter, or 10 mm or less post-cholecystectomy. Pancreas: Visualized portions of the pancreas are sonographically normal. Pancreatic duct measuring 2.6 mm is within normal limits. Kidneys: Limited visualization of the right kidney demonstrates no solid masses. No nephrolithiasis or significant hydronephrosis. Right kidney measures approximately 10.8 cm. IMPRESSION: No cholelithiasis or sonographic evidence of acute cholecystitis. Approved by: Temi Swartz M.D.,Ph.D. on 09/11/2023 at 17:07
[2023-09-11 16:39] LABS: Lipase 108 U/L (23-300)
--- NOTE | 2023-09-11 16:45 | PC.NURSE ---
Patient was sat up to test her ability to intake fluids. Patient began to heave upon drinking and patient blood pressure started dropping. Provider notified and ordered additional bolus of normal saline and additional anti emetic. Patient replaced in trendelenburg
--- NOTE | 2023-09-11 18:52 | EKG_ITS ---
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
[2023-09-11 19:14] LABS: Appearance Urine UA CLEAR
[2023-09-11 19:15] LABS: Color Urine UA ORANGE
[2023-09-11 19:16] LABS: Bacteria Urine Moderate (10-30); RBC Urine 0-1/HPF (0-5/HPF); Squamous Epithelial Cell Urine 10-30 /HPF (0-5/HPF); Urine Volume 10mL (spun); WBC Urine 0-1/HPF (0-5/HPF)
[2023-09-11 19:17] LABS: Culture Indicated Urine Specimen Cultured; Mucus Urine 1+ (Negative)
[2023-09-11 19:23] LABS: Ictotest Urine Negative (Negative)
[2023-09-11] MEDS: ACETAMINOPHEN IV 1,000 MG/100 ML VIAL 400 MG IV (19:33)
[2023-09-11] MEDS: cefTRIAXone 1,000 MG in SODIUM CHLORIDE 0.9% 100 ML 200 MG IV (19:43)
[2023-09-11] MEDS: ONDANSETRON 4 MG/2 ML INJ IV ×2 (20:04→22:53)
[2023-09-11] MEDS: LORazepam 2 MG/ML INJ 1 MG IV (20:33)
[2023-09-11 20:39] LABS: Lactate (Lactic Acid) 1.5 mmol/L (0.7-2.1)
[2023-09-11] MEDS: SODIUM CHLORIDE 0.9% 1,000 ML 200 ML IV (21:28)
[2023-09-11 21:57] LABS: UR Morphine/Opiate cutoff 300 Positive (Negative); Ur Creatinine Normal (Normal); Ur Specific Gravity Normal (Normal); Urine Amphetamines Negative (Negative); Urine Barbiturates Negative (Negative); Urine Benzodiazepines Negative (Negative); Urine Cocaine Negative (Negative); Urine MDMA Negative (Negative); Urine Methadone Negative (Negative); Urine Methamphetamines Negative (Negative); Urine Oxycodone Negative (Negative); Urine Phencyclidine Negative (Negative); Urine Tetrahydrocannabinol Negative (Negative); Urine Tricyclic Antidepressant Negative (Negative); Urine pH Normal (Normal)
[2023-09-11] MEDS: MORPHINE 2 MG/ML INJ IV (22:53)
[2023-09-11] MEDS: SODIUM CHLORIDE 0.9% 1,000 ML 100 ML IV (23:14)
[2023-09-12] MEDS: HYDROMORPHONE 0.5 MG INJ IV (00:27)
[2023-09-12 00:29] VITALS: BP 117/64; PULSE 62; RESP 17; O2SAT 97
[2023-09-12] MEDS: KETOROLAC 30 MG/ML VIAL IV (02:46)
[2023-09-12 02:59] VITALS: BP 105/59; PULSE 64; RESP 16; O2SAT 97
--- NOTE | 2023-09-12 03:48 | PC.NURSE ---
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 Reports 6/10 sharp pain in RLQ, experiencing nausea w/ dry heaving at times, MD aware. Abdomen is soft and non-tender, bowel tones present, patient is passing gas. Pain & nausea medication given as ordered. IVF infusing. OOB w/ SBA to bathroom. On tele showing sinus bradycardia, patient stated that her resting heart rate is normally in the 50's. Patient is wearing her prescription sunglasses, states that she did not bring her regular glasses. Oriented to call light, plan of care ongoing.
--- NOTE | 2023-09-12 05:28 | P.HP_ITS ---
History of Present Illness History of Present Illness Date Patient Seen: 09/11/23 Time Patient Seen: 23:35 Chief complaint: ABD Pain, Vomitting Narrative: 67 years old female with a past medical history of neuropathy presented to the emergency room for right lower quadrant abdominal pain with nausea and vomiting since around noon the previous day to presentation. Denies any fever episodes. Denies any dysuria or blood in the urine but does report that she has a history of kidney stones in 2020 with similar presentations. Denies any chest pain or shortness of breath. Denies any cough wheezing headache or upper respiratory symptoms. In the ED systolic at times did drop into the 90s but bradycardic with a heart rate in the 50s to 60s. Child multiple doses of droperidol/Dilaudid and Toradol. Subsequent lab workup showed WBC count of 8.3, hemoglobin of 13.6 and a platelet count of 421. BUN of 27 and a creatinine of 0.85. AST ALT within normal levels. Urine analysis shows 0-1 WBCs and moderate bacteria. Tox screen is positive for opiates. CT abdomen shows no obstruction stones or hydronephrosis. Normal caliber appendix and no acute process was identified in the abdomen. Did receive a dose of IV Rocephin and due to persistent symptoms, patient was admitted for further evaluation [facility] Social History household members: family Smoking Status: Unknown if ever smoked Meds Home Medications and Allergies Home Medications Medication Instructions Recorded Confirmed Type estradiol 0.05 mg/24 hr weekly 1 patch transdermal WEEKLY 09/11/23 09/11/23 History transdermal patch gabapentin 300 mg capsule 300 mg DAILY 09/11/23 09/11/23 History progesterone micronized 200 mg 200 mg PO ONCE PM 09/11/23 09/11/23 History capsule Allergies Allergy/AdvReac Type Severity Reaction Status Date / Time No Known Drug Allergies Allergy Verified 09/11/23 14:35 Review of Systems Review of Systems Narrative: At 12 point review of system is negative unless otherwise stated in the history of present illness Exam Vital Signs (past 8 hours): - 09/11/23 21:30 09/11/23 21:30 09/11/23 22:10 Temperature 97.0 F L Pulse Rate 62 60 Respiratory Rate 26 H 16 Blood Pressure 103/59 L 102/55 L Pulse Oximetry 97 96 Oxygen Flow Rate 0 09/11/23 22:10 09/12/23 00:29 09/12/23 02:59 Temperature 97.0 F L Pulse Rate 60 62 64 Respiratory Rate 16 17 16 Blood Pressure 102/55 L 117/64 105/59 L Pulse Oximetry 96 97 97 Oxygen Flow Rate 0 0 0 Oxygen Delivery Method Room Air Oxygen Flow Rate 0 Narrative Exam Narrative: Patient isdrowsy but easily wakes up to commands. Still wearing dark glasses Abdomen is soft. Bowel sounds are heard. Minimal tenderness in the right lower quadrant Air entry good bilaterally no wheezes no crackles Objective Labs 09/11/23 14:37 09/11/23 14:37 Labs: Laboratory Results - last 24 hr 09/11/23 09/11/23 09/11/23 14:30 14:37 18:37 WBC 8.3 RBC 4.27 Hgb 13.6 Hct 40.1 MCV 93.9 MCH 31.7 MCHC 33.8 RDW 14.5 Plt Count 421 H Neut % (Auto) 47.5 L Lymph % (Auto) 41.8 H Ogle % (Auto) 9.8 Eos % (Auto) 0.6 L Baso % (Auto) 0.3 Neut # (Auto) 3900 Lymph # (Auto) 3500 Ogle # (Auto) 800 Eos # (Auto) 100 Baso # (Auto) 0 Sodium 135 L Potassium 4.0 Chloride 107 Carbon Dioxide 23 BUN 27 H Creatinine 0.85 Estimated GFR > 60 BUN/Creatinine Ratio 31.8 H Glucose 132 H Lactate 1.8 Calcium 8.6 Total Bilirubin 0.7 AST 26 ALT 16 Alkaline Phosphatase 46 Total Protein 7.1 Albumin 4.2 Globulin 2.9 Albumin/Globulin Ratio 1.4 Lipase 108 Procalcitonin Urine Color [place] Urine Appearance Clear Urine pH TNP Ur Specific [place] TNP Urine Protein TNP Urine Glucose (UA) TNP Urine Ketones TNP Urine Occult Blood TNP Urine Nitrate TNP Urine Bilirubin TNP Ur Bilirubin Confirm Negative Urine Urobilinogen TNP Ur Leukocyte Esterase TNP Urine RBC 0-1/hpf Urine WBC 0-1/hpf Ur Squamous Epith Cells 10-30 /hpf H Urine Bacteria Moderate (10-30) H Urine Mucus 1+ H Urine Yeast 10-30/hpf H Ur Culture Indicated? Specimen cultured Vol Urine Centrifuged 10ml (spun) U Opiates 300ng/mL cut Positive H Ur Oxycodone Screen Negative Urine Methadone Screen Negative Ur Barbiturates Screen Negative U Tricyclic Antidepress Negative Ur Phencyclidine Scrn Negative Ur Amphetamines Screen Negative U Methamphetamines Scrn Negative Ur MDMA Scrn (Ecstasy) Negative U Benzodiazepines Scrn Negative Urine Cocaine Screen Negative U Marijuana (THC) Screen Negative Urine Specific [place] Ur Creatinine 09/11/23 09/11/23 18:37 20:23 WBC RBC Hgb Hct MCV MCH MCHC RDW Plt Count Neut % (Auto) Lymph % (Auto) Ogle % (Auto) Eos % (Auto) Baso % (Auto) Neut # (Auto) Lymph # (Auto) Ogle # (Auto) Eos # (Auto) Baso # (Auto) Sodium Potassium Chloride Carbon Dioxide BUN Creatinine Estimated GFR BUN/Creatinine Ratio Glucose Lactate 1.5 Calcium Total Bilirubin AST ALT Alkaline Phosphatase Total Protein Albumin Globulin Albumin/Globulin Ratio Lipase Procalcitonin 0.030 Urine Color Urine Appearance Urine pH Normal Ur Specific [place] Urine Protein Urine Glucose (UA) Urine Ketones Urine Occult Blood Urine Nitrate Urine Bilirubin Ur Bilirubin Confirm Urine Urobilinogen Ur Leukocyte Esterase Urine RBC Urine WBC Ur Squamous Epith Cells Urine Bacteria Urine Mucus Urine Yeast Ur Culture Indicated? Vol Urine Centrifuged U Opiates 300ng/mL cut Ur Oxycodone Screen Urine Methadone Screen Ur Barbiturates Screen U Tricyclic Antidepress Ur Phencyclidine Scrn Ur Amphetamines Screen U Methamphetamines Scrn Ur MDMA Scrn (Ecstasy) U Benzodiazepines Scrn Urine Cocaine Screen U Marijuana (THC) Screen Urine Specific [place] Normal Ur Creatinine Normal Assessment & Plan Assessment & Plan narrative: 67 years old female with a past medical history of neuropathy presented to the emergency room for right lower quadrant abdominal pain with nausea and vomiting since around noon the previous day to presentation. Denies any fever episodes. Denies any dysuria or blood in the urine but does report that she has a history of kidney stones in 2020 with similar presentations. Denies any chest pain or shortness of breath. Denies any cough wheezing headache or upper respiratory symptoms. In the ED systolic at times did drop into the 90s but bradycardic with a heart rate in the 50s to 60s. Child multiple doses of droperidol/Dilaudid and Toradol. Subsequent lab workup showed WBC count of 8.3, hemoglobin of 13.6 and a platelet count of 421. BUN of 27 and a creatinine of 0.85. AST ALT within normal levels. Urine analysis shows 0-1 WBCs and moderate bacteria. Tox screen is positive for opiates. CT abdomen shows no obstruction stones or hydronephrosis. Normal caliber appendix and no acute process was identified in the abdomen. Did receive a dose of IV Rocephin and due to persistent symptoms, patient was admitted for further evaluation 1. Right lower quadrant abdominal pain. Etiology is unclear at this time. Possibility of urinary tract infection is noted and did receive a dose of IV Rocephin. Continue the IV Dilaudid for now and initiate Toradol as needed. Lactic acid is normal. Does not appear to have any ischemic event at this time. For now conservative management with symptomatic treatment and monitor closely 2 nausea with vomiting. Zofran. 3 GI prophylaxis will be with Protonix 4 anxiety. As needed Xanax. Patient will be admitted under observation status
[2023-09-12] MEDS: SODIUM CHLORIDE 0.9% 1,000 ML 100 ML IV (06:10)
[2023-09-12 06:36] LABS: Add Manual Diff / Slide Review NO; Basophils Absolute Auto 0 /uL (0-100); Eosinophils Absolute Auto 0 /uL (0-450); Hematocrit 36.9 % (36-46); Hemoglobin 12.5 g/dL (12.0-16.0); Lymphocytes Absolute Auto 1000 /uL (1100-4500); Lymphocytes Percent Auto 8.9 % (25-40); Mean Corpuscular Hemoglobin 32.1 PG (26-34); Mean Corpuscular Volume 94.4 fL (80-100); Monocytes Absolute Auto 700 /uL (0-900); Monocytes Percent Auto 6.1 % (3-14); Neutrophils Absolute Auto 9300 /uL (1500-7000); Platelet Count 352 X10^3/uL (150-400); Red Blood Cell Count 3.91 X10^6/uL (4.0-5.2); Red Cell Distribution Width 14.5 % (11.6-14.8)
[2023-09-12 06:47] LABS: Lactate (Lactic Acid) 0.8 mmol/L (0.7-2.1)
[2023-09-12 06:49] LABS: Alanine Aminotransferase 29 IU/L (<35); Albumin 3.7 g/dL (3.5-5.0); Albumin Globulin Ratio 1.4 (1.0-2.8); Alkaline Phosphatase 39 U/L (38-126); Aspartate Aminotransferase 32 IU/L (14-36); BUN Creatinine Ratio 24.3 (6-22); Bilirubin Total 0.7 mg/dL (0.2-1.3); Blood Urea Nitrogen 26 mg/dL (7-17); Carbon Dioxide 17 mmol/L (22-32); Chloride 112 mmol/L (98-107); Estimated Glomerular Filt Rate 58 mL/min (>60); Globulin 2.6 g/dL (1.7-4.1); Glucose 120 mg/dL (80-110); HEMOLYSIS < 15 (0-50); Potassium 4.5 mmol/L (3.4-5.1); Sodium 136 mmol/L (137-145); Total Protein 6.3 g/dL (6.3-8.2)
[2023-09-12] MEDS: ACETAMINOPHEN 325 MG TABLET 650 MG PO (07:00)
[2023-09-12 08:00] VITALS: BP 106/57; PULSE 65; RESP 16; TEMP 36.6; O2SAT 95
--- NOTE | 2023-09-12 10:34 | PC.NURSE ---
Addendum entered by Anamika Glaser R.N. 09/12/23 11:00: Pt escorted but staff (ambulatory) to waiting vehicle D/C in stable condition. Original Note: Pt up ad addie in room, denies discomfort. Tolerared clears w/o nausea. MD in to see, orders for D/c received. SL discontinued intact. Home instructions given w/ understanding. Preparing for D/C
--- NOTE | 2023-09-12 11:11 | CM.DANOTE ---
Brief DCP Assessment Note Pt is a 67yo F here following abdominal pain/n/v. was found to have a UTI as well. PCP none listed Payer Medicare and self pay [employer] reviewed EMR. Per hospitalist in morning rounds, anticipate dc today. No obvious CM needs. Per chart, pt dc'd home prior to being seen by this [employer]. P: home today no CM/DCP needs identified at this time. CM team will follow as needed. SHAKA Willis Discharge Planning/Care Management CM Discharge Assessment Start: 09/12/23 11:10 Freq: Status: Active Protocol: Document 09/12/23 11:10 (Rec: 09/12/23 11:11 [id number]) Discharge Planning Assessment Assigned [employer] Smearer SHAKA Johnson DPOA/Assigned Designee Name mother Flanagan Contact Information [phone] Advance Directives? No History Provided By Patient Prior Living Arrangements House Household Members family Independent with ADL's Yes Is patient alert and oriented? Yes Barriers to Discharge No Discharge Plan Home Referrals Initiated None needed Whiteboard Updated in Patient Room with No name and ext. # of [place] [employer] Smearer Review Status In Process Please Provide Date Initial DC 09/12/23 Assessment Was Performed Next Review Type Continued Stay Review
--- NOTE | 2023-09-12 11:59 | P.DS_ITS ---
History of Present Illness History of Present Illness Date Patient Seen: 09/12/23 Time Patient Seen: 08:40 Date of Onset of Symptoms: 09/11/23 Chief complaint: ABD Pain, Vomitting Narrative: 67 years old female with a past medical history of neuropathy presented to the emergency room for right lower quadrant abdominal pain with nausea and vomiting since around noon the previous day to presentation. Denies any fever episodes. Denies any dysuria or blood in the urine but does report that she has a history of kidney stones in 2020 with similar presentations. Denies any chest pain or shortness of breath. Denies any cough wheezing headache or upper respiratory symptoms. In the ED systolic at times did drop into the 90s but bradycardic with a heart rate in the 50s to 60s. Child multiple doses of droperidol/Dilaudid and Toradol. Subsequent lab workup showed WBC count of 8.3, hemoglobin of 13.6 and a platelet count of 421. BUN of 27 and a creatinine of 0.85. AST ALT within normal levels. Urine analysis shows 0-1 WBCs and moderate bacteria. Tox screen is positive for opiates. CT abdomen shows no obstruction stones or hydronephrosis. Normal caliber appendix and no acute process was identified in the abdomen. Did receive a dose of IV Rocephin and due to persistent symptoms, patient was admitted for further evaluation Discharge Providers Provider Date of admission: 09/11/23 21:53 Discharge Date: 09/12/23 Primary care physician: Dr. Anita Chavez Consults: 09/11/23 22:46 Consult to Pastoral Services Routine Comment: pt request Discharge provider: Shon Marques MD Summary Hospital Course Discharge Diagnosis: 1. Right lower quadrant pain, nausea and vomiting, likely due to acute viral gastroenteritis 2. Peripheral neuropathy Hospital Course: The patient was admitted and hydrated intravenously, administered antiemetics and analgesics. She felt significantly better by morning. Exam on the morning of discharge was unremarkable and she was interested in discharge home. There was no evidence of acute appendicitis, renal colic, urinary infection, diverticulitis or other infectious or worrisome cause of her presenting symptoms. No other issues arose. The patient acknowledged understanding, agreement and appreciation of this plan of care, and agreed to call back with any questions or concerns. Status at Discharge Cognitive/behavioral status at discharge: oriented Functional status at discharge: independent ambulation Overall status at discharge: patient is back to baseline Time Spent with Patient Time spent: Greater than 30 minutes Exam Vital Signs (past 8 hours): - 09/12/23 08:00 Temperature 97.8 F Pulse Rate 65 Respiratory Rate 16 Blood Pressure 106/57 L Pulse Oximetry 95 Oxygen Flow Rate 0 Oxygen Delivery Method Room Air Oxygen Flow Rate 0 Narrative Exam Narrative: GENERAL: This is a well-nourished, well-developed patient, in no apparent distress. HEAD: Atraumatic. Normocephalic. No temporal or scalp tenderness. EYES: Pupils equal round and reactive. Extraocular motions intact. No scleral icterus. No injection or drainage. ENT: Mucous membranes pink and moist. NECK: Trachea midline. No JVD, bruits or lymphadenopathy. Supple, nontender, no meningeal signs. CARDIOVASCULAR: Regular rate and rhythm without murmurs, gallops, or rubs. RESPIRATORY: Clear to auscultation. GASTROINTESTINAL: Abdomen soft, non-tender, nondistended. EXTREMITIES: No clubbing, cyanosis, or edema. BACK: Nontender without deformity or crepitance. No flank tenderness. NEUROLOGIC: Alert, oriented, speech fluent, full upper and lower motor strength, no focal deficits evident. DERMATOLOGIC: No rashes or skin lesions. Objective Imaging CT scan - abdomen: Radiologist's impression: FINDINGS: Image quality: Diagnostic. Lower Chest: No significant findings. URINARY: Right Kidney: No stones or hydronephrosis. Right Ureter: No hydroureter. Left Kidney: No stones or hydronephrosis. Left Ureter: No hydroureter. Bladder: Normal wall thickness. No stones. ABDOMEN: Liver: No contour-deforming solid mass. Gallbladder: No radiopaque gallstones or wall thickening. Biliary ducts: No biliary dilation. Pancreas: No ductal dilation. Spleen: Size is within normal limits. Adrenal Glands: No adrenal nodules. Stomach and Bowel: Normal colonic caliber, without significant wall thickening. Normal caliber appendix in the right lower quadrant. Peritoneum: No abnormal intraperitoneal fluid. No free air. Ventral Wall: No hernia. Abdominal Nodes: No enlarged retroperitoneal or mesenteric lymph nodes. Vessels: Aorta and inferior vena cava are normal in size. PELVIS: Pelvic Organs: Unremarkable. Pelvic Nodes: Unremarkable. Miscellaneous: No inguinal hernias are seen. Bones: Unremarkable. Mild degenerative changes of the visualized spine without acute vertebral body compression fracture. IMPRESSION: No obstructing stones or hydronephrosis. Normal caliber appendix in right lower quadrant. No acute process in the abdomen or pelvis identified to explain patient's symptoms. US - abdomen: Radiologist's impression: FINDINGS: Liver: Liver is normal in size and homogeneous in echotexture. Gallbladder: No gallstones identified. Normal gallbladder wall thickness. No pericholecystic fluid. Negative sonographic Herrera sign. Biliary ducts: Intrahepatic bile ducts are non-dilated. Extrahepatic bile duct caliber measures 2.0 mm. Normal is 6-7 mm or less in diameter, or 10 mm or less post-cholecystectomy. Pancreas: Visualized portions of the pancreas are sonographically normal. Pancreatic duct measuring 2.6 mm is within normal limits. Kidneys: Limited visualization of the right kidney demonstrates no solid masses. No nephrolithiasis or significant hydronephrosis. Right kidney measures approximately 10.8 cm. IMPRESSION: No cholelithiasis or sonographic evidence of acute cholecystitis. Labs 09/12/23 06:00 09/12/23 06:00 Labs: Laboratory Results - last 24 hr 09/11/23 09/11/23 09/11/23 14:30 14:37 18:37 WBC 8.3 RBC 4.27 Hgb 13.6 Hct 40.1 MCV 93.9 MCH 31.7 MCHC 33.8 RDW 14.5 Plt Count 421 H Neut % (Auto) 47.5 L Lymph % (Auto) 41.8 H [place] % (Auto) 9.8 Eos % (Auto) 0.6 L Baso % (Auto) 0.3 Neut # (Auto) 3900 Lymph # (Auto) 3500 [place] # (Auto) 800 Eos # (Auto) 100 Baso # (Auto) 0 Sodium 135 L Potassium 4.0 Chloride 107 Carbon Dioxide 23 BUN 27 H Creatinine 0.85 Estimated GFR > 60 BUN/Creatinine Ratio 31.8 H Glucose 132 H Lactate 1.8 Calcium 8.6 Total Bilirubin 0.7 AST 26 ALT 16 Alkaline Phosphatase 46 Total Protein 7.1 Albumin 4.2 Globulin 2.9 Albumin/Globulin Ratio 1.4 Lipase 108 Procalcitonin Urine Color Miller Urine Appearance Clear Urine pH TNP Ur Specific [place] TNP Urine Protein TNP Urine Glucose (UA) TNP Urine Ketones TNP Urine Occult Blood TNP Urine Nitrate TNP Urine Bilirubin TNP Ur Bilirubin Confirm Negative Urine Urobilinogen TNP Ur Leukocyte Esterase TNP Urine RBC 0-1/hpf Urine WBC 0-1/hpf Ur Squamous Epith Cells 10-30 /hpf H Urine Bacteria Moderate (10-30) H Urine Mucus 1+ H Urine Yeast 10-30/hpf H Ur Culture Indicated? Specimen cultured Vol Urine Centrifuged 10ml (spun) U Opiates 300ng/mL cut Positive H Ur Oxycodone Screen Negative Urine Methadone Screen Negative Ur Barbiturates Screen Negative U Tricyclic Antidepress Negative Ur Phencyclidine Scrn Negative Ur Amphetamines Screen Negative U Methamphetamines Scrn Negative Ur MDMA Scrn (Ecstasy) Negative U Benzodiazepines Scrn Negative Urine Cocaine Screen Negative U Marijuana (THC) Screen Negative Urine Specific [place] Ur Creatinine 09/11/23 09/11/23 09/12/23 18:37 20:23 06:00 WBC 11.0 RBC 3.91 L Hgb 12.5 Hct 36.9 MCV 94.4 MCH 32.1 MCHC 34.0 RDW 14.5 Plt Count 352 Neut % (Auto) 85.0 H D Lymph % (Auto) 8.9 L D [place] % (Auto) 6.1 Eos % (Auto) 0.0 L Baso % (Auto) 0.0 Neut # (Auto) 9300 H Lymph # (Auto) 1000 L [place] # (Auto) 700 Eos # (Auto) 0 Baso # (Auto) 0 Sodium 136 L Potassium 4.5 Chloride 112 H Carbon Dioxide 17 L BUN 26 H Creatinine 1.07 H Estimated GFR 58 L BUN/Creatinine Ratio 24.3 H Glucose 120 H Lactate 1.5 0.8 Calcium 8.0 L Total Bilirubin 0.7 AST 32 ALT 29 Alkaline Phosphatase 39 Total Protein 6.3 Albumin 3.7 Globulin 2.6 Albumin/Globulin Ratio 1.4 Lipase Procalcitonin 0.030 Urine Color Urine Appearance Urine pH Normal Ur Specific [place] Urine Protein Urine Glucose (UA) Urine Ketones Urine Occult Blood Urine Nitrate Urine Bilirubin Ur Bilirubin Confirm Urine Urobilinogen Ur Leukocyte Esterase Urine RBC Urine WBC Ur Squamous Epith Cells Urine Bacteria Urine Mucus Urine Yeast Ur Culture Indicated? Vol Urine Centrifuged U Opiates 300ng/mL cut Ur Oxycodone Screen Urine Methadone Screen Ur Barbiturates Screen U Tricyclic Antidepress Ur Phencyclidine Scrn Ur Amphetamines Screen U Methamphetamines Scrn Ur MDMA Scrn (Ecstasy) U Benzodiazepines Scrn Urine Cocaine Screen U Marijuana (THC) Screen Urine Specific [place] Normal Ur Creatinine Normal PFSH Social History household members: family Smoking Status: Unknown if ever smoked Discharge Plan Discharge Plan Patient Disposition: Home Provider Discharge Comment: followup with PCP 1 week Discharge orders & Medications Prescriptions: New hydrocodone-acetaminophen 5-325 mg tablet 1 tab PO Q6H PRN (Reason: pain) Qty: 6 0RF ondansetron 4 mg tablet,disintegrating 4 mg PO Q4H PRN (Reason: nausea and vomiting) Qty: 10 0RF Continued gabapentin 300 mg Capsule 300 mg DAILY progesterone micronized 200 mg capsule 200 mg PO ONCE PM Patient Comments: Every night estradiol 0.05 mg/24 hr patch weekly 1 patch transdermal WEEKLY Diet/Activity/Treatments Diet: Diet as Tolerated Skin/Wound/Dressing Care Report to your healthcare provider any signs of infection, such as:: chills, fever, night sweats and increased pain Visit Report/Discharge Packet Stand Alone Forms: Patient Portal/API, Stroke Signs & Symptoms Discharge Data Attending Provider: Juan Manuel Noriega Admit Date/Time: 09/11/23 21:53 Quality MIPS - Admit I confirm the patient?s Advance Care Plan is present, Code status is documented, Surrogate decision maker is in patient?s record [If Yes, STOP here]: Yes MIPS - Meds 'Current medications' to include all prescriptions, [id number] products, herbals, cannabis/cannabidiol products, and vitamin/mineral/dietary (nutritional) supplements. I have utilized all available resources to obtain, update, or review the patient?s current medications. [If Yes, STOP here]: Yes MIPS - DC The patient has a history of heart transplant or Left Ventricular Assist Device (LVAD). If yes, STOP here.: No The patient has current or prior documentation of left ventricular ejection fraction (LVEF) less than or equal to 40%, or moderate or severely depressed left ventricular systolic function.: No A. The patient was prescribed or already taking an Angiotensin-Converting Enzyme (ANASTACIO) Inhibitor, or Angiotensin Receptor Jenaro (ARB).: No B. The patient was prescribed or already taking a beta-jenaro. [If Yes to Both A & B, STOP here]: No Patient not prescribed/taking ANASTACIO or ARB, no reason given.: No Patient not prescribed/taking beta-jenaro, no reason given.: No PROFEE Charge Codes Discharge inpatient/observation: [id number]
== END 2023-09-12 11:00 | disposition home or self-care (01) ==
LOC: ED 21:40 → AC 21:55
PROVIDERS: Emergency Medicine; Admitting Provider Internal Medicine; Emergency Provider Emergency Medicine; Visit Provider Internal Medicine
DX: R10.31 Right lower quadrant pain (principal); R11.2 Nausea with vomiting, unspecified; G62.9 Polyneuropathy, unspecified
CPT/HCPCS: 36415; 51798; 74176; 76705; 80053; 80305; 81001; 83605; 83690; 84145; 85025; 87040; 87086; 93005; 96361; 96365; 96375; 96376; 99284; G0378; J0136; J0696; J1170; J1790; J1885; J2060; J2270; J2405